=== PATIENT | female | born 1970 | race Caucasian/White ===

== ENCOUNTER 2017-10-08 09:16 | Emergency (ER) | payer OTHER, MEDICAID ==
[~2017-10-08] VITALS: Ht 167.6 cm; Wt 70.3 kg
[2017-10-08 09:22] VITALS: Ht 167.6 cm; Wt 70.3 kg
[2017-10-08 11:01] VITALS: BP 162/93
== END 2017-10-08 11:03 | disposition home or self-care (01) ==
LOC: ED 09:16
DX: B34.9 Viral infection, unspecified (principal); I10 Essential (primary) hypertension; E11.9 Type 2 diabetes mellitus without complications
CPT/HCPCS: J7620